=== PATIENT | female | born 1980 | race American Indian/Alaskan Native ===

== ENCOUNTER 2024-05-31 12:35 | Outpatient (CLI) | payer OTHER | END 2024-05-31 12:51 | disposition home or self-care (01) | LOC: MAMO-SONO 12:35 | PROVIDERS: ATTEND Internal Medicine Hematology & Oncology | DX: N63 Unspecified lump in breast (principal); N64.4 Mastodynia; D50.8 Other iron deficiency anemias; D68.8 Other specified coagulation defects; E04.2 Nontoxic multinodular goiter ==

== ENCOUNTER 2024-06-23 07:48 | Outpatient (CLI) | payer OTHER ==
[2024-06-23 09:29] LABS: PH,URINE 6.5 (5.0-8.0); URINE APPEARANCE Clear; URINE BILIRRUBIN Negative (NEGATIVE); URINE BLOOD Negative; URINE COLOR Yellow; URINE GLUCOSE Negative (NEGATIVE); URINE KETONE Negative (NEGATIVE); URINE LEUKOCYTE Negative; URINE NITRATE Negative; URINE PROTEIN Negative (NEGATIVE); URINE UROBILINOGEN 0.2 E.U./dl
[2024-06-23 09:34] LABS: URINE BACTERIA 47.7 uL (0.0-1933); URINE EPITHELIAL CELLS 9.6 uL (0.0-38.8); URINE RBC 2.3 uL (0.0-20.8)
[2024-06-23 09:54] LABS: INR 1.02; PARTIAL THROMBOPLASTIN TIME 31.5 SECONDS (22.0-34.0); PROTHROMBIN TIME 11.1 SECONDS (9.0-11.5)
[2024-06-23 09:55] LABS: HEMATOCRIT 34.5 % (36.0-45.00); HEMOGLOBIN 11.6 g/dL (12.0-15.00); MEAN CELL VOLUME 75.1 fL (80.00-100.00); MEAN CORPUSCULAR HEMOGLOBIN 25.1 pg (27.00-32.0); MEAN CORPUSCULAR HGB CONC 33.5 g/dl (32.0-36.0); PLATELET COUNT 304 K/uL (150-450); RED CELL DISTRIBUTION WIDTH 17.5 % (11.5-14.5)
[2024-06-23 10:02] LABS: URINE WBC 1.2 uL (0.0-23.2)
[2024-06-23 10:14] LABS: PT 50:50 10.8 SECONDS (9.7-11.4); PTT 50:50 27.6 SECONDS (22.4-33.0)
[2024-06-23 11:10] LABS: ALBUMIN 3.6 gm/dL (3.4-5.0); BILIRUBIN TOTAL 0.39 mg/dL (0.3-1.2); CALCIUM 8.9 mg/dL (8.5-10.1); CREATININE SERUM 0.74 mg/dL (0.55-1.02); GFR 85.65; GLOBULINA 3.7 G/DL (2.4-3.5); POTASSIUM 3.66 mEq/L (3.5-5.1); TOTAL PROTEIN 7.3 gm/dL (6.4-8.2)
[2024-06-23 11:42] LABS: COL EPI 161 SECONDS (82-175)
== END 2024-06-23 08:04 | disposition home or self-care (01) ==
LOC: LAB 07:48
PROVIDERS: ATTEND Internal Medicine Hematology & Oncology
DX: D50.8 Other iron deficiency anemias (principal); D68.8 Other specified coagulation defects; K35.209 Acute appendicitis with generalized peritonitis, without abscess, unspecified as to perforation; K76.89 Other specified diseases of liver; I10 Essential (primary) hypertension; R74.02 Elevation of levels of lactic acid dehydrogenase [LDH]; D51.1 Vitamin B12 deficiency anemia due to selective vitamin B12 malabsorption with proteinuria; D51.0 Vitamin B12 deficiency anemia due to intrinsic factor deficiency; D69.1 Qualitative platelet defects; N39.0 Urinary tract infection, site not specified

== ENCOUNTER 2024-06-26 08:19 | Outpatient (CLI) | payer OTHER | END 2024-06-26 08:31 | disposition home or self-care (01) | LOC: TOM 08:19 | PROVIDERS: ATTEND Student in an Organized Health Care Education/Training Program | DX: K35.30 Acute appendicitis with localized peritonitis, without perforation or gangrene (principal) ==

== ENCOUNTER 2024-08-02 08:42 | Day surgery (SDC) | payer OTHER ==
[2024-07-26 09:56] VITALS: BP 145/86
[2024-07-26 09:58] LABS: PH,URINE 5.5 (5.0-8.0); URINE APPEARANCE Clear; URINE BILIRRUBIN Negative (NEGATIVE); URINE BLOOD Negative; URINE COLOR Yellow; URINE GLUCOSE Negative (NEGATIVE); URINE KETONE Negative (NEGATIVE); URINE LEUKOCYTE Negative; URINE NITRATE Negative; URINE PROTEIN Negative (NEGATIVE); URINE UROBILINOGEN 0.2 E.U./dl
[2024-07-26 10:02] LABS: URINE BACTERIA 12.2 uL (0.0-1933); URINE EPITHELIAL CELLS 5.2 uL (0.0-38.8); URINE RBC 2.5 uL (0.0-20.8); URINE WBC 2.3 uL (0.0-23.2)
[2024-07-26 10:10] LABS: BASO % 0.4 % (0.1-1.2); EOS # 0.21 (0.04-0.54); EOS % 3.1 % (0.7-7.0); HEMATOCRIT 33.9 % (34.1-44.9); HEMOGLOBIN 10.9 g/dL (11.2-15.7); LYMPH # 1.68 (1.18-3.74); LYMPH % 24.5 % (19.3-53.1); MEAN CORPUSCULAR HEMOGLOBIN 24.7 pg (25.6-32.2); MONO # 0.54 (0.24-0.82); MONO % 7.9 % (4.7-12.5); NEUT # 4.37 (1.56-6.13); NEUT % 63.8 % (34.0-71.1); PLATELET COUNT 372 K/uL (163-369); RED BLOOD COUNT 4.41 M/uL (3.93-5.22); RED CELL DISTRIBUTION WIDTH 15.5 % (11.6-14.4)
[2024-07-26 10:20] LABS: INR 0.95; PARTIAL THROMBOPLASTIN TIME 27.8 SECONDS (22.0-34.0); PROTHROMBIN TIME 10.4 SECONDS (9.0-11.5)
[2024-07-26 10:25] LABS: COL EPI 160 SECONDS (82-175)
[2024-07-26 10:40] LABS: ALBUMIN 3.6 gm/dL (3.4-5.0); BILIRUBIN TOTAL 0.27 mg/dL (0.3-1.2); CALCIUM 9.1 mg/dL (8.5-10.1); CREATININE SERUM 0.69 mg/dL (0.55-1.02); GFR 92.86; GLOBULINA 3.8 G/DL (2.4-3.5); POTASSIUM 3.65 mEq/L (3.5-5.1); TOTAL PROTEIN 7.4 gm/dL (6.4-8.2)
[~2024-08-02] VITALS: Ht 157.5 cm; Wt 73.0 kg
[2024-08-02] MEDS ORDERED: CEFAZOLIN SODIUM 1,000 MG VIAL ONE (10:22)
[2024-08-02] MEDS ORDERED: MORPHINE SULFATE 4 MG/ML VIAL IV ONE (15:25)
== END 2024-08-02 17:15 | disposition home or self-care (01) ==
LOC: CIR.AMB 08:42
PROVIDERS: ATTEND Surgery
DX: K35.30 Acute appendicitis with localized peritonitis, without perforation or gangrene (principal)

== ENCOUNTER 2024-08-30 13:16 | Inpatient (IN) | payer OTHER ==
[~2024-08-30] VITALS: Ht 157.5 cm; Wt 72.6 kg
[2024-08-30 08:04] VITALS: BP 127/85
[2024-08-30 08:22] LABS: BASO % 0.6 % (0.1-1.2); EOS # 0.37 (0.04-0.54); EOS % 5.7 % (0.7-7.0); LYMPH # 1.79 (1.18-3.74); LYMPH % 27.6 % (19.3-53.1); MEAN PLATELET VOLUME 9.50 fl (9.4-12.4); MONO # 0.49 (0.24-0.82); MONO % 7.6 % (4.7-12.5); NEUT # 3.79 (1.56-6.13); NEUT % 58.3 % (34.0-71.1); RED CELL DISTRIBUTION WIDTH 15.0 % (11.6-14.4)
[2024-08-30 08:24] LABS: URINE APPEARANCE Clear; URINE BILIRRUBIN Negative (NEGATIVE); URINE BLOOD NHT; URINE COLOR Yellow; URINE GLUCOSE Negative (NEGATIVE); URINE KETONE Trace (NEGATIVE); URINE LEUKOCYTE Negative; URINE NITRATE Negative; URINE PROTEIN Negative (NEGATIVE); URINE UROBILINOGEN 0.2 E.U./dl
[2024-08-30 08:25] LABS: URINE BACTERIA 209.9 uL (0.0-1933); URINE EPITHELIAL CELLS 23.3 uL (0.0-38.8); URINE RBC 15.8 uL (0.0-20.8); URINE WBC 3.0 uL (0.0-23.2)
[2024-08-30 08:35] LABS: URINE CAST 0.58 uL (0.0-1.40)
[2024-08-30 08:42] LABS: INR 1.0
[2024-08-30 09:32] LABS: ALT/SGPT 22.0 U/L (12-78); AST/SGOT 12.0 U/L (15-37); BILIRUBIN TOTAL 0.37 mg/dL (0.3-1.2); BUN CREA RATIO 13.0 (7.0-25.0); CREATININE SERUM 0.71 mg/dL (0.55-1.02); GFR 89.85; GLOBULINA 3.5 G/DL (2.4-3.5); GLUCOSE FASTING 87.0 mg/dL (65-100); OSMOLALITY SERUM 277.0 MOSM/KG (275-295)
[2024-09-06] MEDS ORDERED: CEFAZOLIN SODIUM 1,000 MG VIAL ONE (08:19)
[2024-09-06] MEDS ORDERED: CITRIC ACID/SODIUM CITRATE 30 ML BLIST.PACK PO ONE (08:19)
[2024-09-06] MEDS ORDERED: SUGAMMADEX SODIUM 200 MG/2 ML VIAL IV ONE (11:04)
[2024-09-06] MEDS ORDERED: MORPHINE SULFATE 4 MG/ML CARTRIDGE IV PRN (11:30)
[2024-09-06] MEDS ORDERED: ONDANSETRON HCL 2 MG/ML VIAL IV PRN (11:30)
[2024-09-06] MEDS ORDERED: RINGERS SOLUTION,LACTATED 1,000 ML IV SCH (11:30)
[2024-09-06] MEDS ORDERED: MORPHINE SULFATE 4 MG/ML VIAL IV ONE (11:45)
[2024-09-06 15:00] VITALS: BP 125/76
[2024-09-06 20:00] VITALS: BP 130/80
[2024-09-07 01:43] VITALS: BP 133/74
[2024-09-07 08:17] VITALS: BP 135/83
[2024-09-07] MEDS ORDERED: ENOXAPARIN SODIUM 40 MG/0.4 ML SYRINGE SUBCUTANEO SCH (09:00)
[2024-09-07 12:08] LABS: BASO % 0.3 % (0.1-1.2); EOS # 0.11 (0.04-0.54); EOS % 1.1 % (0.7-7.0); LYMPH # 1.42 (1.18-3.74); LYMPH % 14.5 % (19.3-53.1); MEAN PLATELET VOLUME 9.20 fl (9.4-12.4); MONO # 0.89 (0.24-0.82); MONO % 9.1 % (4.7-12.5); NEUT # 7.28 (1.56-6.13); NEUT % 74.5 % (34.0-71.1); RED CELL DISTRIBUTION WIDTH 15.6 % (11.6-14.4)
[2024-09-07 13:19] VITALS: BP 130/84
[2024-09-07 16:00] VITALS: BP 128/78
[2024-09-08] VITALS: BP 134/80
[2024-09-08] MEDS ORDERED: OxyCODONE HCL 5 MG TABLET (ROXICODONE) PO PRN (06:00)
[2024-09-08 08:27] VITALS: BP 117/84
== END 2024-09-08 14:15 | disposition home or self-care (01) | DRG 743 ==
LOC: O/R 09-06 08:15 → OB/GYN 09-06 08:15 → SURH 09-06 13:00 → OB/GYN 09-06 13:26 → SURH 09-06 17:17 → OB/GYN 09-08 14:15
PROVIDERS: ADMIT Obstetrics & Gynecology; ATTEND Obstetrics & Gynecology
PROC: 0UT90ZL Resection of Uterus, Supracervical, Open Approach (ICD-10-PCS; principal; 2024-09-06)
DX: D25.1 Intramural leiomyoma of uterus (principal); N73.6 Female pelvic peritoneal adhesions (postinfective); N80.03 Adenomyosis of the uterus

== ENCOUNTER → 2024-12-11 08:13 | Outpatient (CLI) | payer OTHER ==
[2024-12-11 09:04] LABS: BASO % 0.5 % (0.1-1.2); EOS # 0.24 (0.04-0.54); EOS % 3.9 % (0.7-7.0); LYMPH # 1.72 (1.18-3.74); LYMPH % 27.7 % (19.3-53.1); MEAN PLATELET VOLUME 8.90 fl (9.4-12.4); MONO # 0.40 (0.24-0.82); MONO % 6.4 % (4.7-12.5); NEUT # 3.81 (1.56-6.13); NEUT % 61.2 % (34.0-71.1); RED CELL DISTRIBUTION WIDTH 16.2 % (11.6-14.4)
[2024-12-11 10:21] LABS: ALT/SGPT 19.0 U/L (12-78); AST/SGOT 12.0 U/L (15-37); BILIRUBIN TOTAL 0.52 mg/dL (0.3-1.2); BUN CREA RATIO 18.0 (7.0-25.0); CREATININE SERUM 0.68 mg/dL (0.55-1.02); FE 54.0 ug/dl (50-170); GFR 93.99; GLOBULINA 3.7 G/DL (2.4-3.5); GLUCOSE FASTING 81.0 mg/dL (65-100); LDH 150.0 U/L (84-246); OSMOLALITY SERUM 276.0 MOSM/KG (275-295); T4 FREE 1.13 NG/ML (0.76-1.46); TSH 1.2 uIU/mL (0.358-3.74)
[2024-12-11 13:30] LABS: FOLIC ACID 14.86 ng/ml (4.78-20)
== END | disposition home or self-care (01) ==
LOC: LAB 08:13
PROVIDERS: ATTEND Internal Medicine Hematology & Oncology
DX: D50.8 Other iron deficiency anemias (principal); I10 Essential (primary) hypertension; R74.02 Elevation of levels of lactic acid dehydrogenase [LDH]; K76.89 Other specified diseases of liver; D51.1 Vitamin B12 deficiency anemia due to selective vitamin B12 malabsorption with proteinuria; E03.8 Other specified hypothyroidism; E06.3 Autoimmune thyroiditis; D68.32 Hemorrhagic disorder due to extrinsic circulating anticoagulants; K35.209 Acute appendicitis with generalized peritonitis, without abscess, unspecified as to perforation